=== PATIENT | male | born 1970 | race Caucasian/White ===

== ENCOUNTER 2023-11-06 19:04 | Emergency (ER) | payer SELFPAY ==
[~2023-11-06] VITALS: Ht 167.6 cm; Wt 77.3 kg
[2023-11-06 19:14] VITALS: BP 185/106; PULSE 102; RESP 20; TEMP 97.9; O2SAT 100
[2023-11-06 19:44] LABS: BASOPHILS # (AUTO) 0.1 X10'3 (0-0.2); BASOPHILS % (AUTO) 0.8 % (0-1); EOSINOPHILS # (AUTO) 0.1 X10'3 (0-0.9); EOSINOPHILS % (AUTO) 1.5 % (0-6); HEMATOCRIT 49.8 % (42.0-52.0); HEMOGLOBIN 17.3 g/dl (14.0-17.9); LYMPHOCYTES # (AUTO) 1.5 X10'3 (1.1-4.8); LYMPHOCYTES % (AUTO) 21.1 % (21-51); MEAN CORPUSCULAR HEMOGLOBIN 30.1 PG (27.0-31.0); MEAN CORPUSCULAR HGB CONC 34.8 g/dL (33.0-36.5); MEAN CORPUSCULAR VOLUME 86.5 FL (78-98); MONOCYTES # (AUTO) 0.5 X10'3 (0-0.9); MONOCYTES % (AUTO) 7.3 % (2-12); NEUTROPHILS # (AUTO) 4.9 X10'3 (1.8-7.7); NEUTROPHILS % (AUTO) 69.3 % (42-75); PLATELET COUNT 118 X10'3 (140-440); RED BLOOD COUNT 5.76 X10'6 (4.70-6.10); RED CELL DISTRIBUTION WIDTH 13.5 % (11.5-14.5)
[2023-11-06 20:04] LABS: ALANINE AMINOTRANSFERASE 21 U/L (12-78); ALBUMIN 3.5 G/DL (3.4-5.0); ALBUMIN/GLOBULIN RATIO 0.9 (1.1-1.5); ALKALINE PHOSPHATASE 117 IU/L (46-116); ANION GAP 3 (8-16); ASPARTATE AMINO TRANSFERASE 13 U/L (10-37); BILIRUBIN,TOTAL 0.4 MG/DL (0.1-1.0); BLOOD UREA NITROGEN 21 MG/DL (7-18); BUN/CREATININE RATIO 15.7 (10.0-20.0); CALCIUM 9.1 MG/DL (8.5-10.1); CHLORIDE 97 MMOL/L (99-107); CREATININE 1.34 MG/DL (0.60-1.10); ETHANOL < 10 MG/DL (<10); SODIUM 134 MMOL/L (135-145); TOTAL CARBON DIOXIDE 33.7 MMOL/L (24-32); TOTAL PROTEIN 7.4 G/DL (6.4-8.2); eCRCL 58 ML/MIN; eGFR 56 ML/MIN
[2023-11-06 20:10] LABS: GLUCOSE 435 MG/DL (70-104)
== END 2023-11-06 23:35 | disposition left against medical advice (07) ==
LOC: ER 19:04
DX: R73.9 Hyperglycemia, unspecified (principal); Z53.21 Procedure and treatment not carried out due to patient leaving prior to being seen by health care provider
CPT/HCPCS: 36415; 71045; 80053; 80320; 82140; 82948; 84484; 85025; 93005; 99281

== ENCOUNTER 2025-05-12 04:14 | Emergency (ER) | payer MEDICAID ==
[~2025-05-12] VITALS: Ht 167.6 cm; Wt 72.0 kg
--- NOTE | 2025-05-12 04:37 | Physician Documentation ---
History of Present Illness ~ Chief Complaint: Abscess Stated Complaint: MULTIPLE BOILS Time Seen by MD: 04:36 HPI Patient presents to the emergency room with multiple skin infections. Patient has been dealing with skin infections over the past three years. Occasionally t akes course of antibiotics. No fevers. He is having an outbreak currently one in his right knee, one in his left nostril and one on his left buttock. Patient has also been having high blood sugars for which she attributes this because he is not taking his medicines. When asked why he is not taking his medicines he says he just forgets. Medication Reconciliation Allergies: Coded Allergies: No Known Allergies (Unverified , 05/12/25) Past Medical History Past Medical History: High Cholesterol, Hypertension, Diabetes Past Surgical History: no surgical history Alcohol Use: None Drug Use: none Review of Systems ROS All review of systems negative except as per HPI Physical Exam Vital Signs: Temperature: 98.3, Heart Rate: 103, Respiratory Rate: 16, BP: 159/100, Pulse Oximetry: 100, Weight: 72.000 Oxygen Flow Rate: 0 Physical Exam General: Patient is awake, alert, oriented x4 in no acute distress and well appearing.~ Head: Normocephalic and atraumatic. Eyes: Conjunctival normal. EOMI. PERRL. ENT: Mucous membranes moist. Neck: Supple, trachea is midline. Chest: Clear to auscultation bilaterally without rales, rhonchi, or wheezes. There is no accessory muscle use or retractions. Cardiac: RRR without murmurs, gallops, or rubs. Skin: Mild erythema to patient's left nostril, small abscess measuring 0.5 cm to patient's lateral right patella with punctum showing and another 0.5 cm abscess with white punctum in his left buttock. No cellulitis Progress Results/Orders Results/Orders Vital Signs 05/12/25 04:19 Temp 98.3 Pulse 103 Resp 16 B/P (MAP) 159/100 Pulse Ox 100 O2 Flow Rate 0 Laboratory Tests Test 05/12/25 04:28 Medical Decision Making Findings Patient presents to the emergency room with multiple skin infections as per HPI. Differentials include but are not limited to sepsis, abscess, cellulitis, uncontrolled diabetes. Patient does have hyperglycemia but with stable vitals and I do not feel he is suffering from diabetic ketoacidosis. Offered to control his blood sugars in the emergency room however he is declining prefer to go home and take his diabetes medications. We will begin antibiotics. Bleach baths discussed. The need to follow up with his doctor discussed. The need to monitor sugars discussed especially in the light of that has likely contributing to his infections. Departure Disposition: HOME / SELF CARE / HOMELESS Impression: Primary Impression: Abscess Additional Impression: Uncontrolled diabetes mellitus Condition: Stable Discharge Instructions: Skin Abscess, [id number] Additional Instructions: Considered bleach baths as discussed to decrease bacterial counts. Finish all antibiotics. Remember to take your diabetes medications. Referrals: NO PRIMARY CARE PROVIDER (PCP) Prescriptions Sulfamethoxazole/Trimethoprim (Bactrim Ds Tablet) 800 Mg-160 Mg Tablet 1 TAB PO Q12H for 10 Days, #20 TAB Prov: VIJAY IVAN MD 05/12/25 Education Educated: Patient Educated regarding: diagnosis, treatment, need for follow up Signature Scribe Signature: No scribe Attestation: The note accurately reflects work and decisions made by me.Vijay Iavn MD 05/12/25 04:46 VIJAY IVAN MD May 12, 2025 04:36
[2025-05-12] MEDS ORDERED: SULF1TAB49 PO (04:45)
[2025-05-12] MEDS: ondansetron 4mg rapidly disintigrating tab PO ONE (05:06)
[2025-05-12] MEDS: sulfamethoxazole/trimethoprim DS (800/160mg) tablet PO ONE (05:06)
[2025-05-12 05:12] VITALS: BP 164/103; PULSE 100; RESP 14; TEMP 98.3; O2SAT 99
== END 2025-05-12 05:15 | disposition home or self-care (01) ==
LOC: ER 04:15
DX: L02.415 Cutaneous abscess of right lower limb (principal); E11.65 Type 2 diabetes mellitus with hyperglycemia; E78.00 Pure hypercholesterolemia, unspecified; I10 Essential (primary) hypertension
CPT/HCPCS: 82948; 99283

== ENCOUNTER 2025-10-15 18:06 | Emergency (ER) | payer MEDICAID ==
[~2025-10-15] VITALS: Ht 167.6 cm; Wt 72.7 kg
--- NOTE | 2025-10-15 18:24 | Physician Documentation ---
History of Present Illness General Chief Complaint: Multiple Medical Complaints Stated Complaint: MULTIPLE MEDICAL ISSUES Time Seen by MD: 18:14 History of Present Illness Initial Comments This is a 55-year-old gentleman with a known history of diabetes who presented for evaluation of boil behind his left ear that has been present for several weeks. He has been in the past. He feels that is getting worse. He feels that they this infection this is [facility] into his left face, jaw. He is now experiencing jaw pain and a left-sided headache. No particular palliating or aggravating factors. He is here with a his ex partner of several years. Evidently he called her because he stated that he could not stay awake while driving. According to the woman, the patient repeatedly nods off, appears to be slightly confused, and stares off in the distance with a not stimulated. According to the gentleman he was feeling off just today. No obvious trigger provocation. No palliating or aggravating factors. Did not attempt to treat it. One he does have diabetes, he does not check his blood sugars. He randomly administers random number of units of insulin in the sort of hopes with the best. He smokes cigarettes, he drinks socially, denies drug use. He does use kiera louann. At the time of my examination he complains of headache, denies difficulty opening his mouth, vision or hearing changes. Denies any difficulty breathing chest pain. Denies any nausea, vomiting, diarrhea, abdominal pain. Medication Reconciliation Allergies: Coded Allergies: No Known Allergies (Unverified , 10/15/25) Past Medical History Past Medical History: High Cholesterol, Hypertension, Diabetes Past Surgical History: no surgical history Smoking: Non-Smoker Alcohol Use: None Drug Use: none Review of Systems ROS 10 point review of systems was performed and unless noted above in HPI is negative for acute process/complaint. Physical Exam Physical Exam Vital Signs: Temperature: 97.5, Source: Temporal, Heart Rate: 101, Respiratory Rate: 18, BP: 161/96, Pulse Oximetry: 98, Weight: 72.730 Oxygen Flow Rate: 0 Physical Exam GENERAL: Awake, alert, oriented, GCS 15, no apparent distress, non-toxic appearing, answers questions, follows commands appropriately. Examined in tri age. HEENT: Atraumatic, normocephalic, pupils equal, extraocular muscles intact, sclerae anicteric, mucus membranes moist, oropharynx is clear, no stridor. NECK: supple, full active range of motion, trachea midline, no thyromegaly, no lymphadenopathy, no JVD. CARDIOVASCULAR: Slightly tachycardic and regular rate/rhythm, no murmurs/gallops/rubs, Pulses are 2+ in all extremities and symmetric. Capillary refill less than 2 seconds. PULMONARY: Nonlabored, good air movement ,no respiratory distress, speaking in full sentences, clear to auscultation bilaterally, no wheezing, no ronchi, no rales, no accessory muscle use. GASTROINTESTINAL: Soft, non-tender, non-distended, normal active bowel sounds, no organomegaly, no pulsatile masses, no CVA tenderness. NEUROLOGIC: Lucid with normal mental status. Normal facial symmetry. Moves all extremities symmetrically and with purpose. No truncal ataxia. Speech is fluid without evidence of dysarthria or aphasia, no focal deficits appreciated. MUSCULOSKELETAL: There is full range of motion of all extremities. There is no joint pain or joint swelling or joint erythema. There is no muscle pain or tenderness or swelling. EXTREMITIES: warm, well-perfused, no cyanosis, no clubbing, no edema, no acute deformities. Skin: warm, dry, no rashes or lesions, no jaundice, no petechiae orpurpura. No ecchymosis. PSYCHIATRIC: Normal affect, normal insight, normal concentration. Focused exam: [] Progress Results/Orders Results/Orders Orders - HAL GUTIERREZ DO Chest,Two Views (10/15/25 18:14) Culture Blood (10/15/25 18:14) Urinalysis, Cult If Indicated (10/15/25 18:14) Monitor (10/15/25 18:14) Saline Lock (10/15/25 18:14) Accucheck (10/15/25 18:14) Accucheck (10/15/25 20:14) Accucheck (10/15/25 22:14) Ct Head (10/15/25 18:14) Mixed Venous (10/15/25 ) Drug Screen, Urine (10/15/25 18:20) Completed Orders - HAL GUTIERREZ DO Electrocardiogram (10/15/25 18:14) Cbc/Diff (10/15/25 18:14) CK (10/15/25 18:14) ESR (10/15/25 18:14) C-Reactive Protein (10/15/25 18:14) Chest,Two Views (10/15/25 18:14) PBNP (10/15/25 18:14) MG (10/15/25 18:14) TSH (10/15/25 18:14) Free T4 (10/15/25 18:14) Normal Saline 1000ml (0.9% Sodium Chlori (10/15/25 18:15) Ct Head (10/15/25 18:14) CMP (10/15/25 18:14) Hs Troponin I W Calculations (10/15/25 18:14) Hs Troponin I W Calculations (10/15/25 20:14) Lacticsepsis (10/15/25 18:14) Acetone, Serum (10/15/25 18:16) Ethanol (10/15/25 18:14) Osmolality (10/15/25 18:14) Normal Saline 1000ml (0.9% Sodium Chlori (10/15/25 20:45) Medications Received in ER Medications (Trade) Dose Ordered Sig/Sincere Route PRN Reason Start Time Stop Time Status Last Admin Dose Admin (0.9% sodium chloride (NS) 1000ml IV soln) 1,000 ml ONCE ONCE IVB 10/15/25 18:15 10/15/25 18:16 DC 10/15/25 21:09 1,000 ML Sodium Chloride 1,000 ml @ 1,000 mls/hr ONCE ONCE IV 10/15/25 20:45 10/15/25 21:44 DC 10/15/25 21:35 1,000 MLS/HR Vital Signs 10/15/25 10/15/25 18:12 21:41 Temp 97.5 Pulse 101 Resp 18 18 B/P (MAP) 161/96 Pulse Ox 98 O2 Flow Rate 0 Laboratory Tests Test 10/15/25 18:13 10/15/25 18:41 10/15/25 20:29 10/15/25 21:16 Glucometer 530 *H White Blood Count 7.3 Red Blood Count 5.05 Hemoglobin 14.3 Hematocrit 41.8 L Mean Corpuscular Volume 82.8 Mean Corpuscular Hemoglobin 28.4 Mean Corpuscular Hemoglobin Concent 34.4 Red Cell Distribution Width 12.8 Platelet Count 179 Mean Platelet Volume 7.9 Neutrophils (%) (Auto) 75.7 H Lymphocytes (%) (Auto) 12.8 L Monocytes (%) (Auto) 9.3 Eosinophils (%) (Auto) 1.6 Basophils (%) (Auto) 0.6 Neutrophils # (Auto) 5.6 Lymphocytes # (Auto) 0.9 L Monocytes # (Auto) 0.7 Eosinophils # (Auto) 0.1 Basophils # (Auto) 0.0 CBC Comment Erythrocyte Sedimentation Rate 54 H Sodium Level 131 L Potassium Level 4.2 Chloride Level 93 L Carbon Dioxide Level 32.5 H Anion Gap 6 L Blood Urea Nitrogen 17 Creatinine 1.11 H Estimated GFR/1.73 m2 69 BUN/Creatinine Ratio 15.3 Glucose Level 467 *H Osmolality 302 H Lactic Acid Level 0.9 Calcium Level 9.7 Magnesium Level 1.8 Total Bilirubin 0.8 Aspartate Amino Transf (AST/SGOT) 17 Alanine Aminotransferase (ALT/SGPT) 29 Alkaline Phosphatase 153 H Total Creatine Kinase 102 Troponin I High Sensitivity 34 29 C-Reactive Protein 3.32 H Pro-B-Type Natriuretic Peptide 372 H Total Protein 8.2 Albumin 3.5 Globulin 4.7 H Albumin/Globulin Ratio 0.7 L Thyroid Stimulating Hormone (TSH) 2.50 Free Thyroxine 1.60 H Chemistry Comments Ethyl Alcohol Level < 10 Acetone Level Negative Troponin I High Sens Percent Delta 14 Troponin I Hi Sens Absolute Change -5 Venous Blood pH 7.352 Test 10/15/25 21:40 10/15/25 21:54 Glucometer 206 H 349 H Microbiology Date/Time Source Procedure Growth Status 10/15/25 18:41 Blood Arm Left Blood Culture - Preliminary NEGATIVE (LESS THAN 24 HOURS) Resulted Medical Decision Making Additional information obtaine: other (Ex-girlfriend) Findings Facility Status: [facility], [facility] process The plan was discussed with the patient, who demonstrates clear understanding of the plan and is in agreement with the plan unless otherwise noted in the chart. All questions have been answered, all concerns were addressed unless otherwise documented. I was available throughout their ED stay for frequent reassessment and questions. Differential Diagnoses (considered and possible or likely): [Differential for the gentleman's boil to the neck includes but not limited due cellulitis, abscess, less likely necrotizing infection, less likely sepsis as a result of such, unlikely osteomyelitis. More importantly, differential for his altered mental status includes but not limited to hyperglycemia without ketosis or acidosis, DKA, HHS, dehydration, electrolyte derangement, less likely to be hypoglycemia, urinary tract infection, pneumonia, occult bacteremia as well as alcohol intoxication, drug toxidrome has been considerably. Less likely subdural, subarachnoid, intracranial neoplasm.] ??Differential Diagnoses (considered and unlikely, not requiring evaluation currently): [No evidence of lateralizing signs to suspect a stroke, no reported trauma] MDM Data Please see HPI for the following: Independent Historians and external Records Review. 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 All vitals signs/haemodynamics, ordered tests were independently reviewed and interpreted by myself. Nursing triage complaint and vitals reviewed, additional nursing notes were reviewed as available and I agree unless otherwise noted or documented in contradiction in the chart Vital Signs: Independently reviewed Labs: Independently interpreted Imaging: Independently interpreted Old Medical Records: Independently reviewed, see [facility] for relevant summary and information Pulse Oximetry: [98%] interpreted as [normal on room air] by me [Kinesiologist: Tachycardic Rate, Regular rhythm, no ectopy, sinus tachycardia. reviewed and interpreted by me] Additionally notably showing: [Hemodynamics reviewed. The patient isn't febrile, slightly tachycardic, which improved with the fluids. No evidence of hypotension respiratory distress. CBC normal, no leukocytosis, no anemia, normal platelets. No neutrophilic predominance. ESR slightly elevated. Blood gas is notable for elevated pCO2. But this is a venous gas. Chemistry showed slightly elevated creatinine, elevated glucose, normal gap, no acidosis. Normal as well as lady results decreased suspicion for HHS. BNP is slightly elevated. Free T4 is elevated. TSH is normal. Alcohol is negative. Ketones are negative. CT head was obtained showing no acute intracranial process. Chest x- ray was obtained showing no acute cardiopulmonary disease.] Tests considered but not ordered include: [Not applicable, exhaustive workup was obtained] Social Determinants of Health Impact: Patient was evaluated in [facility] [place] to healthcare due to below par ratio of patient to medical providers. [] Comorbid Conditions Impacting Present Evaluation and Care/Treatment: [History of diabetes, marijuana use] Management Discussions with other Healthcare Providers: [None] Treatment and Disposition Medication Management (Given or considered): []. See EMR for details Consideration for Hospitalization/Escalation/Deescalation of Care: Admission for observation has been considered, [however the patient is able to tolerate p.o., their symptoms are controlled, they are able to rely on oral medications, and their chief complaint/diagnosis can be managed on outpatient basis.] ?ED Course:?[No evidence of DKA. Patient ambulated with a steady gait. He is alert and oriented, no evidence of altered mental status.] ?Shared decision making:?[Patient is hemodynamically stable for discharge home with follow with their primary care provider. [ ] Specific and cautious return precautions provided and discussed with full understanding. Any incidental findings were also discussed and follow up recommendations given. [] All questions answered. Patient/family were able to verbalize back return precautions. Patient/family agree to plan. Copies of imaging and laboratory studies were provided.] Code status:?FULL Please see the full Electronic Medical Record for full details of nursing documentation, medications list, other records of complete past medical history and conditions, vital signs, laboratory studies, and any radiologic study interpretations by radiologists. Portions of this note were completed using [employer] dictation software and as a result there may exist minor errors in spelling. I have reviewed elements of past family and social history and agree as included in note. Differential Diagnosis See body of main note for differential diagnosis Departure Disposition: HOME / SELF CARE / HOMELESS Impression: Primary Impression: Hyperglycemia without ketosis Additional Impressions: Transient confusion Uncontrolled diabetes mellitus Condition: Improved Discharge Instructions: Confusion, Hyperglycemia Referrals: NO PRIMARY CARE PROVIDER (PCP) Education Educated: Patient Educated regarding: diagnosis, treatment, prognosis, need for follow up Signature Scribe Signature: No scribe Attestation: The note accurately reflects work and decisions made by me.Hal Gutierrez DO 10/15/25 18:25 HAL GUTIERREZ DO Oct 15, 2025 18:24
--- NOTE | 2025-10-15 18:31 | ELECTROCARDIOGRAPH REPORT ---
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
--- NOTE | 2025-10-15 18:36 | RADIOLOGY REPORT ---
EXAM: DI CHEST,TWO VIEWS CLINICAL HISTORY: weakness TECHNIQUE: PA and lateral views of the chest WID: COMPARISON: DI CHEST,SINGLE VIEW on DOS: 11/06/23 FINDINGS: Lines and tubes: None Chest: The heart size and pulmonary vasculature is within normal limits. No pleural effusion, pneumothorax, or consolidation. The osseous structures are grossly intact. Multilevel thoracic spondylosis. IMPRESSION: 1. No acute cardiopulmonary abnormality.
[2025-10-15 19:08] LABS: MEAN PLATELET VOLUME 7.9 FL (7.4-10.4); RED CELL DISTRIBUTION WIDTH 12.8 % (11.5-14.5)
--- NOTE | 2025-10-15 19:25 | RADIOLOGY REPORT ---
EXAM: CT CT HEAD INDICATION: aloc TECHNIQUE: CT of the head without intravenous contrast. Radiation Dose Information: CT Dose: CTDI volume is 54.04 mGy. Dose-length product is 1205.49 mGy*cm The dose indicators for CT are the volume Computed Tomography (CT) Dose Index (CTDIvol) and the Dose Length Product (DLP), and are measured in units of mGy and mGy-cm, respectively. These indicators are not patient dose, but values generated from the CT scanner acquisition factors. The report includes radiation exposure data for exposures received during this examination. COMPARISON: None FINDINGS: There is no evidence of acute intracranial hemorrhage, extra-axial collection, mass effect, midline shift, herniation or hydrocephalus. The ventricles, sulci and cisterns are age appropriate. The woodward-white differentiation is intact. Patchy periventricular and subcortical white matter hypoattenuation is nonspecific but may be related to small vessel ischemic disease. The visualized paranasal sinuses and mastoid air cells are clear. The surrounding soft tissues and osseous structures are unremarkable. IMPRESSION: No acute intracranial abnormality.
[2025-10-15 19:34] LABS: CREATININE 1.11 MG/DL (0.60-1.10); ETHANOL < 10 MG/DL (<10); PRO BRAIN NATRIURETIC PEPTIDE 372 PG/ML (0-125); TOTAL CARBON DIOXIDE 32.5 MMOL/L (24-32); eCRCL 68 ML/MIN; eGFR 69 ML/MIN
[2025-10-15 19:51] LABS: ACETONE NEGATIVE (NEGATIVE)
[2025-10-15 19:59] LABS: OSMOLALITY 302 MOSM/K (280-300)
[2025-10-15] MEDS: normal saline 1000ML IV soln IVB ONE (21:09)
[2025-10-15] MEDS: normal saline 1000ml 1,000 ML IV ONE (21:35)
[2025-10-15 22:59] LABS: LEUKOCYTE ESTERASE ,URINE NEGATIVE (Neg); NITRITES, URINE NEGATIVE (Neg); OCCULT BLOOD,URINE SMALL (Neg)
[2025-10-15 23:02] VITALS: BP 176/90; PULSE 105; RESP 18; TEMP 97.9; O2SAT 98
[2025-10-15 23:05] LABS: UA COLLECTION TYPE CLN CATCH MIDSTREAM; URINE AMPHETAMINE SCREEN POSITIVE (Neg); URINE BARBITUATE SCREEN NEGATIVE (Neg); URINE BENZODIAZEPINES SCREEN NEGATIVE (Neg); URINE CANNABINOID SCREEN NEGATIVE (Neg); URINE COCAINE SCREEN NEGATIVE (Neg); URINE METHADONE SCREEN NEGATIVE (Neg); URINE OPIATE SCREEN POSITIVE (Neg); URINE PHENCYCLIDINE SCREEN NEGATIVE (Neg)
[2025-10-15 23:07] LABS: SQUAMOUS EPITHELIAL CELL,UR NONE SEEN /LPF (FEW)
== END 2025-10-15 23:12 | disposition home or self-care (01) ==
LOC: ER 18:08
DX: E11.65 Type 2 diabetes mellitus with hyperglycemia (principal); R41.0 Disorientation, unspecified; I10 Essential (primary) hypertension; E78.00 Pure hypercholesterolemia, unspecified; Z79.899 Other long term (current) drug therapy
CPT/HCPCS: 36415; 70450; 71046; 80053; 80305; 80320; 81001; 82009; 82550; 82800; 82948; 83605; 83735; 83880; 83930; 84439; 84443; 84484; 85025; 85651; 86140; 87040; 93005; 99285; J7030